=== PATIENT | female | born 1965 | race Caucasian/White ===

== ENCOUNTER 2020-09-14 02:49 | Inpatient (IN) | payer MEDICARE, OTHER ==
[~2020-09-14] VITALS: Ht 170.2 cm; Wt 81.6 kg
--- NOTE | 2020-09-14 03:39 | NUR ---
rachel from [facility] for medical clearance; pt placed on 5150 for dts. pt states plans to "overdose on heroine", received 800mg seroquel at facility
--- NOTE | 2020-09-14 03:41 | NUR ---
covid swab collected and sent to lab
[2020-09-14 03:52] LABS: BILIRUBIN,URINE Negative (NEGATIVE); COLOR,URINE LIGHT YELLOW (YELLOW); LEUKOCYTE ESTERASE ,URINE Trace (NEGATIVE); NITRITE, URINE Positive (NEGATIVE); PH,URINE 5.5 (5.0-8.0); PROTEIN,URINE Trace mg/dl (NEGATIVE); UGLUCOSE Negative (NEGATIVE); UROBILINOGEN,URINE 0.2 EU/dL (0.2)
[2020-09-14 04:06] LABS: BACTERIA,URINE 3+ /HPF (None Seen); SQUAMOUS EPITHELIAL CELL,UR Many /HPF (None Seen); WBC,URINE 51-80 /HPF (0-3)
[2020-09-14 04:09] LABS: BASOPHILS % (AUTO) 0.1 % (0.0-2.0); HEMATOCRIT 36 % (33-45); HEMOGLOBIN 12.1 g/dL (11.5-14.8); LYMPHOCYTES # (AUTO) 1.2 /CMM (0.8-4.8); LYMPHOCYTES % (AUTO) 23.9 % (20.0-44.0); MEAN CORPUSCULAR HGB CONC 34 g/dl (31.0-36.0); MEAN CORPUSCULAR VOLUME 89 fL (82-100); MONOCYTES # (AUTO) 0.7 /CMM (0.1-1.30); NEUTROPHILS # (AUTO) 3.2 /CMM (1.8-8.9); PLATELET COUNT (AUTO) 255 /CMM (150-450); RED BLOOD CELL COUNT(AUTO) 4.01 MIL/uL (4.0-5.2); WHITE BLOOD COUNT (AUTO) 5.2 K/uL (4.3-11.0)
[2020-09-14 04:22] LABS: ALANINE AMINOTRANSFERASE 18 U/L (12-78); ALBUMIN 3.6 g/dL (3.4-5.0); ALCOHOL, BLOOD < 3 mg/dL (0-0); ALKALINE PHOSPHATASE 116 U/L (46-116); ASPARTATE AMINOTRANSFERASE 14 U/L (15-37); BILIRUBIN,DIRECT 0.1 mg/dL (0.0-0.2); BILIRUBIN,TOTAL 0.4 mg/dL (0.2-1.0); CALCIUM, SERUM 9.7 mg/dL (8.5-10.1); CARBON DIOXIDE 32 mmol/L (21-32); CHLORIDE 105 mmol/L (98-107); CREATININE 1.2 mg/dL (0.6-1.3); GLUCOSE 111 mg/dL (74-106); POTASSIUM 3.6 mmol/L (3.5-5.1); SODIUM SERUM 142 mmol/L (136-145); TOTAL PROTEIN, SERUM 7.2 g/dL (6.4-8.2); UREA NITROGEN, BLOOD 19 mg/dL (7-18)
[2020-09-14 04:26] LABS: ACETAMINOPHEN 0 ug/ml (10-30)
[2020-09-14] MEDS ORDERED: NITROFURANTOIN/NITROFURAN MAC 100 MG CAPSULE PO ONE (04:30)
[2020-09-14] MEDS ORDERED: NITROFURANTOIN/NITROFURAN MAC 100 MG CAPSULE ONE (04:33)
--- NOTE | 2020-09-14 04:41 | NUR ---
pt refusing medication, states she doesnt need it
--- NOTE | 2020-09-14 05:44 | NUR ---
CALLED IN REPORT TO NURSE ALFRED
[2020-09-14 06:23] VITALS: BP 96/54
[2020-09-14] MEDS ORDERED: MAGNESIUM HYDROXIDE 30 ML UDC PO PRN (06:30)
[2020-09-14] MEDS ORDERED: BLOOD SUGAR DIAGNOSTIC 1 EACH STRIP IN ONE (06:30)
[2020-09-14] MEDS ORDERED: TEMAZEPAM 7.5 MG CAPSULE PO PRN (06:30)
[2020-09-14] MEDS ORDERED: ACETAMINOPHEN 325 MG TABLET PO PRN (06:30)
[2020-09-14] MEDS ORDERED: LORAZEPAM 0.5 MG TABLET PO PRN (06:30)
[2020-09-14] MEDS ORDERED: MAG HYDROX/AL HYDROX/SIMETH 30 ML UDC PO PRN (06:30)
[2020-09-14 08:00] VITALS: BP 90/54
[2020-09-14] MEDS ORDERED: FAMO20TA8 PO (08:27)
[2020-09-14] MEDS ORDERED: QUET400T PO (08:27)
[2020-09-14] MEDS ORDERED: BUPR300T52 PO (08:27)
--- NOTE | 2020-09-14 08:46 | NUR ---
RNOsmelCO: Admitted a 55 year old female from [facility]. Per hold officers responded from a call of the subject. The patient stated that she was tired of life and wanted to kill herself by overdosing on heroine. She has diagnosed with bipolar disorder, PTSD, and Borderline personality. During face to face interview, patient is uncooperative and refused to answer, she turned her back and cover herself with a blanket and sleep. She refused flu and PNA vaccine, as well as skin assessment. She is unkempt and disheveled with dysphoric affect. Dr Turcios is aware of the admission and Dr Kumar. All belongings were screened from [employer]. We will continue to monitor and start with plan of care. Patient's rights booklet was given to her.
--- NOTE | 2020-09-14 11:35 | NUR ---
RN-CO: DR Tong Kaur made aware of the admission and to reconcile home medications. Patient has a pressured speech, belligerent, intense eye contact.
[2020-09-14 16:00] VITALS: BP 92/59
[2020-09-14] MEDS: FAMOTIDINE (20 MG) 20 MG TABLET PO SCH (17:50)
[2020-09-14 20:00] VITALS: BP 98/57
--- NOTE | 2020-09-14 20:50 | NUR ---
NURSES NOTES: PAGED DR. ANTOINE TO INFORM HIM OF THIS ADMISSION. AWAITING FOR CALL BACK.
[2020-09-14] MEDS: CEPHALEXIN MONOHYDRATE 500 MG CAPSULE PO SCH (21:00)
--- NOTE | 2020-09-14 21:50 | NUR ---
NURSES NOTES: PAGED AGAIN DR. ANTOINE. AWAITING FOR CALLBACK.
--- NOTE | 2020-09-15 01:17 | NUR ---
NURSES NOTES: PATIENT REQUESTED FOR MOTRIN 600 MG FOR GENERALIZED BODY PAIN, OBTAINED AN ORDER FROM DR. DAVISON- MOTRIN 600 MG PRN Q6H. HOWEVER, WHEN OBSTETRICS GYNECOLOGY PHYSICIAN WENT INTO PATIENT'S ROOM, PATIENT IS ASLEEP. WILL CONTINUE TO MONITOR PATIENT'S PAIN STATUS.
[2020-09-15] MEDS: IBUPROFEN 600 MG TABLET PO PRN ×2 (03:28→17:54)
--- NOTE | 2020-09-15 03:29 | NUR ---
nurses notes: complained of headache 03/13. motrin 600 mg given orally.
[2020-09-15] MEDS: FAMOTIDINE (20 MG) 20 MG TABLET PO SCH (06:24)
[2020-09-15 08:00] VITALS: BP 128/73
--- NOTE | 2020-09-15 08:00 | NUR ---
RN NOTE- MULTICRAFT OPERATOR NOTIFIED THIS RN THAT DR ANTOINE CALLED IN REGARDING SEEING THIS PT. DR ANTOINE HAS TO SEE THIS PT THEY HAVE BEEN HERE ALMOST 24 HRS. STATED HE WILL SEE PT.
[2020-09-15 08:42] LABS: POTASSIUM 4.6 mmol/L (3.5-5.1)
[2020-09-15 08:43] LABS: ALBUMIN 3.4 g/dL (3.4-5.0); BILIRUBIN,TOTAL 0.3 mg/dL (0.2-1.0); TOTAL PROTEIN, SERUM 6.8 g/dL (6.4-8.2)
[2020-09-15] MEDS: CEPHALEXIN MONOHYDRATE 500 MG CAPSULE PO SCH ×2 (09:03→20:11)
[2020-09-15 10:38] VITALS: BP 128/73
--- NOTE | 2020-09-15 14:45 | NUR ---
Initial Discharge Plan: Pt is currently homeless and states that she would like to return to [place] when she has a chance. SW will work with the pt and the MD regarding appropriate discharge planning. SW will form a safe and proper discharge.
[2020-09-15 16:06] VITALS: BP 152/68
--- NOTE | 2020-09-15 18:00 | NUR ---
RN NOTE- DR ANTOINE PAGED TO SEE THIS PT. STATED HE WILL SEE PT
[2020-09-15 19:50] VITALS: BP 113/48
--- NOTE | 2020-09-15 20:24 | NUR ---
RN NOTES: PT. SEEN BY , GUERO PEREZ NOTED AND CARRIED OUT, WILL CONTINUTY WITH CARE.
[2020-09-15 21:00] VITALS: BP 118/80
[2020-09-15] MEDS: QUETIAPINE FUMARATE 100 MG TABLET PO SCH (21:04)
[2020-09-16] MEDS: IBUPROFEN 600 MG TABLET PO PRN (03:30)
[2020-09-16] MEDS: FAMOTIDINE (20 MG) 20 MG TABLET PO SCH (06:09)
--- NOTE | 2020-09-16 06:40 | NUR ---
RN NOTES: PATIENT RESTING IN ROOM. NO S/S OF DISTRESS. NO BEHAVIOR PROBLEMS NOTED AND NO CHANGE OF CONDITION NOTED, SAFETY PRECAUTION MAINTAINED, ALL PATIENT CARE NEEDS MET AT THIS TIME. WILL CONTINUE TO MONITOR PATIENT FOR MOOD, BEHAVIOR AND SAFETY AND ENDORSE TO AM SHIFT FOR CONTINUITY CARE.
[2020-09-16 08:00] VITALS: BP 92/57
--- NOTE | 2020-09-16 08:30 | NUR ---
PT. COOPERATIVE,MED COMPLIANT,PLEASANT.VS STABLE.
[2020-09-16] MEDS: CEPHALEXIN MONOHYDRATE 500 MG CAPSULE PO SCH ×2 (09:55→21:00)
[2020-09-16] MEDS: BUPROPION XL 150 MG TAB.ER.24 PO SCH (09:55)
[2020-09-16 16:00] VITALS: BP 100/67
--- NOTE | 2020-09-16 18:51 | NUR ---
out of rm. most of day in tv rm. and interacting with other pt's.
[2020-09-16 20:53] VITALS: BP 117/78
--- NOTE | 2020-09-16 21:56 | NUR ---
GPS RN NOTES: DR FAJARDO CALLED TO REPORT PATIENT IS INSISTING HER 2200 SEROQUEL DOSE/400MG MUST BE INCREASED TO 800MG, BUT DR FAJARDO STATED SHE WILL NOT INCREASE THE DOSE. PATIENT REFUSED 2100 KEFLEX 500MG 1 CAP AND HAS STATED SHE IS ALSO REFUSING 2200 SEROQUEL 100MG/4 TABS/400MG PRESCRIBED UNLESS SEROQUEL DOSE IS INCREASED TO 800MG. PATIENT IS AGITATED, UNCOOPERATIVE, VERBALLY AGGRESSIVE, THREATENING TO COMMIT SUICIDE IF SHE DOES NOT GET HER SEROQUEL INCREASED TO 800MG THEN DENYING SHE DOES NOT MEAN WHAT SHE HAD JUST SAID ABOUT COMMITTING SUICIDE. SAFETY PRECAUTION TAKEN, WILL CONTINUE TO MONITOR FOR MOOD, SAFETY AND BEHAVIOR.
[2020-09-16] MEDS: QUETIAPINE FUMARATE 100 MG TABLET PO SCH (22:00)
[2020-09-17] MEDS: FAMOTIDINE (20 MG) 20 MG TABLET PO SCH ×2 (06:00→08:36)
--- NOTE | 2020-09-17 06:43 | NUR ---
GPS RN CLOSING NOTES: PATIENT AWAKE, A/O X3. PATIENT SLEPT 5 HR THIS SHIFT. REFUSED 0600 MEDICATION PEPCID 20MG/1TAB PO ORDERED. UNCOOPERATIVE AND HOSTILE. NO S/S OF DISTRESS. RESPIRATION EVEN AND UNLABORED WITH EQUAL RISE AND FALL OF THE CHEST ON ROOM AIR. SAFETY PRECAUTION MAINTAINED, BED IN LOWEST POSITION AND LOCKED. Q15 MINUTES SAFETY ROUND CONTINUED. ALL PATIENT CARE NEEDS MET ANTICIPATED. WILL CONTINUE TO MONITOR PATIENT FOR MOOD, BEHAVIOR AND SAFETY AND ENDORSE TO AM SHIFT.
[2020-09-17 08:00] VITALS: BP 133/72
[2020-09-17] MEDS: BUPROPION XL 150 MG TAB.ER.24 PO SCH (08:35)
[2020-09-17] MEDS: CEPHALEXIN MONOHYDRATE 500 MG CAPSULE PO SCH ×2 (08:35→20:06)
[2020-09-17] MEDS ORDERED: QUETIAPINE FUMARATE 25 MG TABLET PO PRN (12:30)
[2020-09-17 16:00] VITALS: BP 113/75
[2020-09-17 20:00] VITALS: BP 129/89
--- NOTE | 2020-09-17 20:00 | NUR ---
GPS RN OPENING NOTE: PATIENT AWAKE, A/O X3. HOSTILE. REVIEWED MEDICATION PT UPSET OF CHANGES MADE TO HER MEDICATION. NO S/S OF RESP OR PHYSICAL DISTRESS. RESPIRATION EVEN AND UNLABORED WITH EQUAL RISE AND FALL OF THE CHEST ON ROOM AIR. SAFETY PRECAUTION IN PLACE BED IN LOWEST POSITION AND LOCKED. Q15 MINUTES SAFETY ROUND CONTINUED. WILL CONT TO MONITOR.
[2020-09-17] MEDS: QUETIAPINE FUMARATE 100 MG TABLET PO SCH ×2 (20:07→21:08)
--- NOTE | 2020-09-17 20:08 | NUR ---
PT REFUSED EVENING MEDICINE. STATES WITH RAISED VOICE "IM NOT GOING TO TAKE MY SEROQUEL BECAUSE THAT FUCKING IDIOT DOCTOR IS NOT GIVING ME THE CORRECT DOSE. I CANT BELIEVE HOW INCOMPETENT HE IS. IM NOT GOING TO TAKE KEFLEX I DO NOT HAVE A URINARY TRACT INFECTION. IM GOING TO CALL PATIENT RIGHTS TOMORROW AM BECAUSE I NEED TO GET TO A REAL HOSPITAL. "
--- NOTE | 2020-09-17 21:08 | NUR ---
PATIENT APPROACHED NURSE AND AGREES TO TAKE SEROQUEL STILL STATES ,"IM GONNA BE LEAVING AMA IN THE MORNING THOUGH." PT WATCHING TV DEMEANOR IS CALM.
[2020-09-18 08:00] VITALS: BP 103/60
[2020-09-18] MEDS: CEPHALEXIN MONOHYDRATE 500 MG CAPSULE PO SCH ×2 (09:00→21:00)
[2020-09-18] MEDS: IBUPROFEN 600 MG TABLET PO PRN (14:49)
--- NOTE | 2020-09-18 15:10 | NUR ---
RN NOTES PATIENT REQUESTED FOR IBUPROFEN SECONDARY TO COMPLAINT OF LEG PAIN.
[2020-09-18 16:00] VITALS: BP 118/70
--- NOTE | 2020-09-18 19:18 | NUR ---
RN NOTES PATIENT SEEN OUT OF BED WATCHING TV IN THE DINING ROOM AND WENT BACK TO ROOM, AWAKE AND VERBALLY RESPONSIVE. BREATHING EVEN AND UNLABORED, TOLERATING ROOM AIR, NOT IN ACUTE DISTRESS. A/O X4, ABLE TO MAKE NEEDS KNOWN. DENIES SI/HI AT THIS TIME. SAFETY PRECS MAINTAINED. ENDORSED TO SOFTWARE APPLICATIONS DESIGNER RN FOR ABIMAEL.
--- NOTE | 2020-09-18 19:20 | NUR ---
RN NOTES, PT IN ROOM AT THIS TIME, ENGAGED IN A CONVERSATION WITH ANOTHER PATIENT, NO EPISODES OF AGITATION OR DISRUPTIVE BEHAVIOR, WILL CONTINUE TO MONITOR CLOSELY."
[2020-09-18 20:00] VITALS: BP 97/68
--- NOTE | 2020-09-18 21:00 | NUR ---
RN NOTES, PATIENT REFUSED KEFLEX ANTIBIOTIC, EXPLAINED RISK AND BENEFITS X3, STILL REFUSED, WILL CONTINUE TO MONITOR CLOSELY.
[2020-09-18] MEDS: QUETIAPINE FUMARATE 100 MG TABLET PO SCH (21:01)
[2020-09-19] MEDS: FAMOTIDINE (20 MG) 20 MG TABLET PO SCH ×2 (06:00→06:22)
--- NOTE | 2020-09-19 06:33 | NUR ---
RN NOTES, PATIENT REFUSED PEPCID MEDICATION, EXPLAINED RISK AND BENEFITS X3, STILL REFUSE.
--- NOTE | 2020-09-19 06:41 | NUR ---
RN NOTES, PT IN ROOM AT THIS TIME, REFUSED BLOOD DRAWN AT THIS TIME, REFUSED KEFLEX AND THIS MORNING PEPCID, NOTED WITH EPISODES OF CURSING AND YELLING STAFF, VERY SENSITIVE, OTHERWISE NO SIGNIFICANT CHANGE IN CONDITION, WILL ENDORSE XONTINUITY OF CARE TO ONCOMING NURSE.
[2020-09-19 08:00] VITALS: BP 91/56
[2020-09-19] MEDS: CEPHALEXIN MONOHYDRATE 500 MG CAPSULE PO SCH ×2 (09:00→21:00)
[2020-09-19] MEDS ORDERED: buPROPion 100 MG TABLET PO SCH (11:00)
[2020-09-19] MEDS: BUPROPION XL 150 MG TAB.ER.24 PO SCH (11:10)
[2020-09-19] MEDS: IBUPROFEN 600 MG TABLET PO PRN (11:12)
[2020-09-19 16:00] VITALS: BP 102/69
[2020-09-19 16:39] LABS: CALCIUM, SERUM 9.3 mg/dL (8.5-10.1); POTASSIUM 4.1 mmol/L (3.5-5.1)
[2020-09-19 20:26] VITALS: BP 104/68
[2020-09-19] MEDS: QUETIAPINE FUMARATE 100 MG TABLET PO SCH (21:06)
[2020-09-20] MEDS: FAMOTIDINE (20 MG) 20 MG TABLET PO SCH (06:00)
[2020-09-20 08:00] VITALS: BP 115/72
[2020-09-20] MEDS: CEPHALEXIN MONOHYDRATE 500 MG CAPSULE PO SCH ×2 (08:13→21:00)
[2020-09-20] MEDS: BUPROPION XL 150 MG TAB.ER.24 PO SCH (08:15)
[2020-09-20] MEDS: IBUPROFEN 600 MG TABLET PO PRN ×2 (09:56→21:37)
--- NOTE | 2020-09-20 09:58 | NUR ---
RN-CO: PATIENT REQUESTED FOR MOTRIN FOR HEADCHE 12/11.
--- NOTE | 2020-09-20 11:00 | NUR ---
SNF Referral: SW faxed a referral to the following two facilities: [facility] with attn to Sully with the fax number: [phone] [facility] with attn to Perla to the fax number: [phone]
--- NOTE | 2020-09-20 13:18 | NUR ---
SNF Contact: Helen ([phone]) from [facility] contacted the SW and stated that the pt was accepted to their facility. Perla ([phone]) from [facility] contacted the SW and stated that the pt was accepted to their facility as well.
[2020-09-20 16:00] VITALS: BP 129/75
--- NOTE | 2020-09-20 19:30 | NUR ---
GPS RN NOTE, RECEIVED PATIENT AWAKE AND IN BED, NO S/S OR COMPLAINTS OF PAIN AT THIS TIME. PATIENT IS DISPLAYING NO S/S OF APPARENT DISTRESS AT THIS TIME. PATIENT BREATHING IS UNLABORED WITH EQUAL RISE AND FALL OF THE CHEST. PATIENT IS ALERT AND ORIENTED X 3 ON ROOM AIR WITH A SPO2 99%. PATIENT IS COMPLIANT WITH MEDICATIONS, ANXIOUS AT TIMES, NEEDY, PARANOID, AND COOPERATIVE. PATIENT DENIES SUICIDAL AND HOMICIDAL IDEATIONS AT THIS TIME. PATIENT ASSISTED WITH TURNING AND REPOSITIONING Q2HR AND PRN FOR COMFORT AND CIRCULATION. PATIENT HAS NO NEEDS AT THIS TIME. PATIENT EDUCATED ON THE USE OF THE CALL FONG. PATIENT BED SIDE RAILS UP X 2 FOR SAFETY. PATIENT BED IS LOCKED, LOW, WITH BED ALARM ON. WILL CONTINUE TO MONITOR THIS PATIENT Q15 MINUTES WITH THE HELP OF STAFF TO MAINTAIN SAFETY.
[2020-09-20 20:00] VITALS: BP 116/76
[2020-09-20] MEDS: QUETIAPINE FUMARATE 100 MG TABLET PO SCH (21:10)
--- NOTE | 2020-09-20 21:12 | NUR ---
GPS RN NOTE, PATIENT REFUSED KEFLEX 500MG PO Q12HR SCHEDULED. OFFERED THREE TIMES AND STILL PATIENT REFUSED STATING, " NO I DON'T NEED THAT ". EDUCATED PATIENT ON THE RISKS AND BENEFITS OF TAKING AND REFUSING KEFLEX. WILL CONTINUE TO MONITOR THIS PATIENT.
--- NOTE | 2020-09-20 21:37 | NUR ---
GPS RN NOTE, PATIENT HAS A COMPLAINT OF A HEAD ACHE AT 5 OUT 10 ON THE PAIN SCALE AND IS REQUESTING MOTRIN AT THIS TIME. PATIENT VITAL SIGNS ARE STABLE. GAVE MOTRIN 600MG PO Q6HR PRN ORDERED. WILL REASSESS FOR PAIN AND I WILL CONTINUE TO MONITOR THIS PATIENT.
[2020-09-21] MEDS: IBUPROFEN 600 MG TABLET PO PRN ×2 (07:04→19:42)
[2020-09-21] MEDS: FAMOTIDINE (20 MG) 20 MG TABLET PO SCH (07:04)
[2020-09-21 08:00] VITALS: BP 90/59
[2020-09-21] MEDS: CEPHALEXIN MONOHYDRATE 500 MG CAPSULE PO SCH (08:08)
[2020-09-21] MEDS: BUPROPION XL 150 MG TAB.ER.24 PO SCH (08:08)
--- NOTE | 2020-09-21 14:30 | NUR ---
Family Contact: GRACIELA called the pts mother, Maribell ([phone]), and confirmed that she bought the pt a train ticket to go back to [place]. She stated that the reference number for the tikcet is [id number]. She confirmed that she bought it and stated that she hopes the pt does not miss the train as the ticket was expensive.
--- NOTE | 2020-09-21 14:45 | NUR ---
Individual Intervention: SW met with the pt at bedside and informed her that the SW confirmed with her mom that a ticket has been purchased for her to go back to [place]. SW reminded her that she was accepted to a facility and she stated that she wanted to go back towards her home. SW inquired about where the pt would stay as she currently does not have a relationship with her children. Pt states that she has $3100 and that she can afford to stay in [facility] for a few days until she can find an apartment.
[2020-09-21 16:00] VITALS: BP 117/65
--- NOTE | 2020-09-21 19:30 | NUR ---
GPS RN NOTE, RECEIVED PATIENT AWAKE AND IN BED, NO S/S OR COMPLAINTS OF PAIN AT THIS TIME. PATIENT IS DISPLAYING NO S/S OF APPARENT DISTRESS AT THIS TIME. PATIENT BREATHING IS UNLABORED WITH EQUAL RISE AND FALL OF THE CHEST. PATIENT IS ALERT AND ORIENTED X 3 ON ROOM AIR WITH A SPO2 97%. PATIENT IS SELECTIVE WITH MEDICATIONS, ANXIOUS AT TIMES, NEEDY, PARANOID, AND COOPERATIVE. PATIENT DENIES SUICIDAL AND HOMICIDAL IDEATIONS AT THIS TIME. PATIENT ASSISTED WITH TURNING AND REPOSITIONING Q2HR AND PRN FOR COMFORT AND CIRCULATION. PATIENT HAS NO NEEDS AT THIS TIME. PATIENT EDUCATED ON THE USE OF THE CALL FONG. PATIENT BED SIDE RAILS UP X 2 FOR SAFETY. PATIENT BED IS LOCKED, LOW, WITH BED ALARM ON. WILL CONTINUE TO MONITOR THIS PATIENT Q15 MINUTES WITH THE HELP OF STAFF TO MAINTAIN SAFETY.
[2020-09-21 20:42] VITALS: BP 115/70
[2020-09-21] MEDS: QUETIAPINE FUMARATE 100 MG TABLET PO SCH (21:08)
[2020-09-22] MEDS: FAMOTIDINE (20 MG) 20 MG TABLET PO SCH (05:33)
--- NOTE | 2020-09-22 07:33 | NUR ---
GPS RN NOTES PATIENT COMPLAINING OF HEADACHE 4 OUT OF 10 AND REQUESTING MOTRIN. PRN MOTRIN ADMINISTERED.
[2020-09-22] MEDS: IBUPROFEN 600 MG TABLET PO PRN ×2 (07:36→16:26)
[2020-09-22 08:00] VITALS: BP 94/59
[2020-09-22] MEDS: BUPROPION XL 150 MG TAB.ER.24 PO SCH (08:05)
--- NOTE | 2020-09-22 11:18 | NUR ---
Discharge Note: Pt will be discharged to the [facility] located at [address] [place] [address]. Pt will be discharged at 4:30PM as the pt has a train ticket for 7pm. Pts mother, Maribell ([phone]), was made aware of the discharge and bought the pts ticket. Pt was accepted to [facility] but is refusing place despite psychiatrist recommendation. Pt states that she wants to go back to [place] and she has $3100 so she can afford a hotel until she finds an apartment to live in. Upon discharge, the pt appears to be in a euthymic mood and presents with a calm affect. Pt appears to be alert and oriented x4 (time, place, self and situation). Pt denies both suicidal and homicidal ideation as well as auditory and visual hallucinations. Pt appears to be well groomed and appropriately dressed. Pt appears to be ambulatory with a steady gait. Pt was provided with homeless resources such as shelters, food jones, showers, hot meals, health clinics, mental health clinics and substance abuse referrals. GRACIELA provided patient with the 2019 [facility] Group Home Program list. GRACIELA provided patient with a copy of the [facility] homeless directory which provides information on locations for hot meals, sack lunches, food pantries, and showers. GRACIELA provided an additional list of mental health clinics: [facility] [address] [place] [address] ([phone]); [facility] [address] [place] [address] ([phone]); a list of medical clinics; [facility] [address], [place]. [place], ; [facility] [address], [place]. GRACIELA Provided [facility] [address] [place] [address]: ([phone]). Patient was provided with a brief substance abuse intervention and referred to the following substance abuse programs: [facility] Substance Abuse Self-helpline ([phone]); [facility] [address] [place] [address] ([phone]); [facility] [address] [facility] [address] ([phone]); [facility] ([phone]); [facility] ([phone]); [facility] ([phone]); [facility] ([phone]).Pt will be under the care of her psychiatrist, Dr. Haddad, located at [address] [place] [address]; . Pt will also be under the care of her drawing checker, Dr. Cleveland, located at [facility] [place] [address]; . Pt signed the homeless waiver and the multidisciplinary exit care form was done, printed, signed, and given to the patient.
--- NOTE | 2020-09-22 15:13 | NUR ---
GPS RN NOTES PATIENT REFUSES SKIN ASSESSMENT. PER PATIENT HER SKIN IS INTACT.
[2020-09-22 16:00] VITALS: BP 110/75
--- NOTE | 2020-09-22 16:30 | NUR ---
GPS RN NOTES PATIENT COMPLAINING OF HEADACHE 4 OUT OF 10 AND REQUESTING MOTRIN. PRN MOTRIN ADMINISTERED.
--- NOTE | 2020-09-22 16:48 | NUR ---
GPS DISCHARGE NOTES PATIENT DISCHARGED IN MEDICALLY STABLE CONDITION. PATIENT IS A/O X4 AND ABLE TO TAKE CARE OF SELF. PATIENT DENIES ANY SUICIDAL AND HOMICIDAL IDEATIONS, ALSO DENIES VISUAL AND AUDITORY HALLUCINATIONS. ALL DISCHARGE DOCUMENTATIONS READY AND TEACHING PROVIDED OT PATIENT REGARDING DISCHARGE INSTRUCTIONS AND MEDICATION SCHEDULE. PATIENT VERBALIZED UNDERSTANDING AND SIGNED DISCHARGE PAPERS. ALL BELONGINGS AND VALUABLES ACCOUNTED FOR; PERSONAL THINGS RETURNED AND FORMED SIGNED BY PATIENT. PER PATIENT HER SKIN IS INTACT AND SHE REFUSES SKIN CHECK. PATIENT LEFT THE UNIT ACCOMPANIED BY RN AND IT BUSINESS PROCESS ARCHITECT AT 1630. OUTSIDE TAXI WAS WAITING TO TAKE THE PATIENT TO THE [facility]. VOUCHER WAS SIGNED AND COPY RETURNED TO THE NURSING OFFICE.
== END 2020-09-22 16:30 | disposition home or self-care (01) | DRG 885 ==
LOC: ER 02:53 → GPS 05:27
PROVIDERS: ADMIT Psychiatry & Neurology Psychiatry; ATTEND Nurse Practitioner Acute Care
DX: F31.64 Bipolar disorder, current episode mixed, severe, with psychotic features (principal); N17.0 Acute kidney failure with tubular necrosis; R45.851 Suicidal ideations; N39.0 Urinary tract infection, site not specified; F23 Brief psychotic disorder; F29 Unspecified psychosis not due to a substance or known physiological condition; K27.9 Peptic ulcer, site unspecified, unspecified as acute or chronic, without hemorrhage or perforation; G47.00 Insomnia, unspecified; Z59.0 Homelessness; Z73.6 Limitation of activities due to disability; F60.9 Personality disorder, unspecified; E66.9 Obesity, unspecified; Z91.14 Patient's other noncompliance with medication regimen; Z68.28 Body mass index [BMI] 28.0-28.9, adult; Z71.3 Dietary counseling and surveillance
CPT/HCPCS: 36415; 80048-TC; 80053-TC; 80061-TC; 80076-TC; 81001; 85025-TC; 87081-TC; 87086-TC; C9803; G0480

== ENCOUNTER 2023-06-12 18:42 | Inpatient (IN) | payer MEDICARE, OTHER ==
[~2023-06-12] VITALS: Ht 162.6 cm; Wt 79.4 kg
[~2023-06-12 18:42] MED LIST: FAMO20TA8 PO
[2023-06-12] MEDS ORDERED: QUET400T PO (19:09)
[2023-06-12] MEDS ORDERED: BUPR300T52 PO (19:09)
[2023-06-12 19:49] LABS: BASOPHILS % (AUTO) 0.7 % (0.0-2.0); HEMATOCRIT 26 % (33-45); HEMOGLOBIN 7.9 g/dL (11.5-14.8); LYMPHOCYTES # (AUTO) 1.7 K/uL (0.8-4.8); LYMPHOCYTES % (AUTO) 23.1 % (20.0-44.0); MEAN CORPUSCULAR HEMOGLOBIN 20 PG (26.0-33.0); MEAN CORPUSCULAR HGB CONC 30 g/dl (31.0-36.0); MEAN CORPUSCULAR VOLUME 67 fL (82-100); MONOCYTES # (AUTO) 0.6 K/uL (0.1-1.30); MONOCYTES % (AUTO) 8.9 % (2.0-12.0); NEUTROPHILS # (AUTO) 4.8 K/uL (1.8-8.9); NEUTROPHILS % (AUTO) 67.3 % (43.0-81.0); PLATELET COUNT (AUTO) 361 K/uL (150-450); RED BLOOD CELL COUNT(AUTO) 3.88 MIL/uL (4.0-5.2); WHITE BLOOD COUNT (AUTO) 7.2 K/uL (4.3-11.0)
[2023-06-12 20:20] LABS: ALANINE AMINOTRANSFERASE 24 U/L (12-78); ALBUMIN 3.5 g/dL (3.4-5.0); ALKALINE PHOSPHATASE 98 U/L (46-116); ASPARTATE AMINOTRANSFERASE 16 U/L (15-37); BILIRUBIN,TOTAL 0.3 mg/dL (0.2-1.0); CALCIUM, SERUM 8.9 mg/dL (8.5-10.1); CARBON DIOXIDE 23 mmol/L (21-32); CHLORIDE 106 mmol/L (98-107); GLUCOSE 154 mg/dL (74-106); POTASSIUM 3.4 mmol/L (3.5-5.1); SODIUM SERUM 139 mmol/L (136-145); TOTAL PROTEIN, SERUM 6.8 g/dL (6.4-8.2); UREA NITROGEN, BLOOD 22 mg/dL (7-18)
[2023-06-12 20:21] LABS: ACETAMINOPHEN 0 ug/ml (10-30); ALCOHOL, BLOOD < 3 mg/dL (0-10); SALICYLATE 1.6 mg/dL (2.8-20.0)
[2023-06-12 21:37] LABS: APPEARANCE,URINE CLEAR (CLEAR); BILIRUBIN,URINE NEGATIVE (NEGATIVE); BLOOD, URINE TRACE-INTA Ery/uL (NEGATIVE); COLOR,URINE YELLOW (YELLOW); KETONES,URINE 1+ mg/dL (NEGATIVE); LEUKOCYTE ESTERASE ,URINE TRACE (NEGATIVE); NITRITE, URINE NEGATIVE (NEGATIVE); PROTEIN,URINE NEGATIVE (NEGATIVE); UGLUCOSE NEGATIVE (NEGATIVE); UROBILINOGEN,URINE 0.2 EU/dL (0.2)
[2023-06-12 21:41] LABS: ADD URINE CULTURE NO
[2023-06-12 21:42] LABS: BACTERIA,URINE None seen /HPF (None Seen); MUCUS,URINE Few /LPF (None Seen)
[2023-06-12 21:49] LABS: EOSINOPHILS % (MANUAL) 1 % (0-4); LYMPHOCYTES % (MANUAL) 21 % (16-48); MONOCYTES % (MANUAL) 7 % (0-11.0); NEUTROPHILS % (MANUAL) 71 (42-76); OVALOCYTES 1+; PLATELET ESTIMATE ADEQU; TARGET CELLS 1+; TEAR DROP CELLS RARE
[2023-06-12 21:50] LABS: ANISOCYTOSIS 1+; HYPOCHROMASIA 1+; ROULEAUX 1+
[2023-06-12 22:01] LABS: AMPHETAMINE, URINE NEGATIVE (NEGATIVE); BARBITURATE, URINE NEGATIVE (NEGATIVE); BENZODIAZEPINE, URINE NEGATIVE (NEGATIVE); COCCAINE, URINE NEGATIVE (NEGATIVE); OPIATE, URINE NEGATIVE (NEGATIVE); PHENCYCLIDINE SCREEN,URINE NEGATIVE (NEGATIVE)
[2023-06-12 22:19] LABS: CANNABINOID, URINE POSITIVE (NEGATIVE)
[2023-06-13] MEDS: ZOLPIDEM TARTRATE 5 MG TABLET PO PRN (00:53)
[2023-06-13] MEDS ORDERED: MAG HYDROX/AL HYDROX/SIMETH 30 ML UDC PO PRN (01:00)
[2023-06-13] MEDS ORDERED: LORAZEPAM 1 MG TABLET PO PRN (01:00)
[2023-06-13] MEDS ORDERED: MAGNESIUM HYDROXIDE 30 ML UDC PO PRN (01:00)
[2023-06-13] MEDS ORDERED: ACETAMINOPHEN 325 MG TABLET PO PRN (01:00)
[2023-06-13] MEDS ORDERED: BLOOD SUGAR DIAGNOSTIC 1 EACH STRIP IN ONE (01:30)
[2023-06-13 01:45] VITALS: BP 119/72; TEMP 98.2; O2SAT 98
[2023-06-13 08:00] VITALS: BP 127/80; TEMP 97.8; O2SAT 94
[2023-06-13] MEDS: BUPROPION XL 150 MG TAB.ER.24 PO SCH (13:26)
[2023-06-13] MEDS ORDERED: ASPIRIN/ACETAMINOPHEN/CAFFEINE 1 EACH TABLET PO PRN (15:30)
[2023-06-13 16:00] VITALS: BP 134/82; TEMP 98; O2SAT 98
[2023-06-13] MEDS: ASPIRIN PO PRN (17:21)
[2023-06-13] MEDS: CAFFEINE PO PRN (17:21)
[2023-06-13] MEDS: ACETAMINOPHEN PO PRN (17:21)
[2023-06-13 20:00] VITALS: BP 118/81; TEMP 98; O2SAT 100
[2023-06-13] MEDS: QUETIAPINE FUMARATE 100 MG TABLET PO SCH (21:11)
[2023-06-14 08:00] VITALS: BP 103/63; TEMP 97.9; O2SAT 98
[2023-06-14] MEDS: FAMOTIDINE (20 MG) 20 MG TABLET PO SCH (08:18)
[2023-06-14] MEDS: BUPROPION XL 150 MG TAB.ER.24 PO SCH (08:18)
[2023-06-14] MEDS ORDERED: BUPROPION XL 150 MG TAB.ER.24 PO SCH (09:00)
[2023-06-14] MEDS ORDERED: POTASSIUM CHLORIDE 20 MEQ TAB.PRT.SR PO ONE (09:00)
[2023-06-14] MEDS: ASPIRIN PO PRN ×2 (09:41→15:48)
[2023-06-14] MEDS: ACETAMINOPHEN PO PRN ×2 (09:41→15:48)
[2023-06-14] MEDS: CAFFEINE PO PRN ×2 (09:41→15:48)
[2023-06-14 15:13] LABS: BASOPHILS # (AUTO) 0.1 K/uL (0.0-0.2); BASOPHILS % (AUTO) 1.1 % (0.0-2.0); HEMATOCRIT 27 % (33-45); HEMOGLOBIN 8.2 g/dL (11.5-14.8); LYMPHOCYTES # (AUTO) 1.4 K/uL (0.8-4.8); LYMPHOCYTES % (AUTO) 24.9 % (20.0-44.0); MEAN CORPUSCULAR HEMOGLOBIN 21 PG (26.0-33.0); MEAN CORPUSCULAR HGB CONC 31 g/dl (31.0-36.0); MEAN CORPUSCULAR VOLUME 67 fL (82-100); MONOCYTES # (AUTO) 0.7 K/uL (0.1-1.30); MONOCYTES % (AUTO) 11.8 % (2.0-12.0); NEUTROPHILS # (AUTO) 3.6 K/uL (1.8-8.9); NEUTROPHILS % (AUTO) 62.2 % (43.0-81.0); PLATELET COUNT (AUTO) 357 K/uL (150-450); RED BLOOD CELL COUNT(AUTO) 3.99 MIL/uL (4.0-5.2); RED CELL DISTRIBUTION WIDTH 21.7 % (11.5-15.0); WHITE BLOOD COUNT (AUTO) 5.8 K/uL (4.3-11.0)
[2023-06-14 15:17] LABS: CALCIUM, SERUM 9.1 mg/dL (8.5-10.1); CREATININE 1.2 mg/dL (0.6-1.3); POTASSIUM 4.7 mmol/L (3.5-5.1)
[2023-06-14 16:00] VITALS: BP 102/61; TEMP 98; O2SAT 97
[2023-06-14 20:00] VITALS: BP 106/66; TEMP 97.6; O2SAT 97
[2023-06-14] MEDS ORDERED: QUETIAPINE FUMARATE 100 MG TABLET ONE (21:12)
[2023-06-14] MEDS: QUETIAPINE FUMARATE 100 MG TABLET PO SCH (21:16)
[2023-06-15 08:00] VITALS: BP 105/59; TEMP 97.8; O2SAT 100
[2023-06-15] MEDS: ACETAMINOPHEN PO PRN (08:11)
[2023-06-15] MEDS: CAFFEINE PO PRN (08:11)
[2023-06-15] MEDS: ASPIRIN PO PRN (08:11)
[2023-06-15] MEDS: FAMOTIDINE (20 MG) 20 MG TABLET PO SCH (08:12)
[2023-06-15] MEDS: BUPROPION XL 150 MG TAB.ER.24 PO SCH (08:12)
[2023-06-15 16:01] VITALS: BP 100/65; TEMP 97.9; O2SAT 99
[2023-06-15 20:29] VITALS: BP 109/63; TEMP 97.9; O2SAT 99
[2023-06-15] MEDS: QUETIAPINE FUMARATE 100 MG TABLET PO SCH (21:21)
[2023-06-16 08:00] VITALS: BP 128/79; TEMP 97.6; O2SAT 96
[2023-06-16] MEDS: FAMOTIDINE (20 MG) 20 MG TABLET PO SCH (08:18)
[2023-06-16] MEDS: BUPROPION XL 150 MG TAB.ER.24 PO SCH (08:18)
[2023-06-16] MEDS: ACETAMINOPHEN PO PRN ×2 (09:47→16:14)
[2023-06-16] MEDS: ASPIRIN PO PRN ×2 (09:47→16:14)
[2023-06-16] MEDS: CAFFEINE PO PRN ×2 (09:47→16:14)
[2023-06-16 16:00] VITALS: BP 104/63; TEMP 98.2; O2SAT 100
[2023-06-16 19:49] VITALS: BP 124/65; TEMP 98.4; O2SAT 100
[2023-06-16] MEDS: ZOLPIDEM TARTRATE 5 MG TABLET PO PRN (21:29)
[2023-06-16] MEDS: QUETIAPINE FUMARATE 100 MG TABLET PO SCH (21:29)
[2023-06-17] MEDS: CAFFEINE PO PRN ×2 (03:45→14:08)
[2023-06-17] MEDS: ACETAMINOPHEN PO PRN ×2 (03:45→14:08)
[2023-06-17] MEDS: ASPIRIN PO PRN ×2 (03:45→14:08)
[2023-06-17] MEDS: BUPROPION XL 150 MG TAB.ER.24 PO SCH (08:41)
[2023-06-17] MEDS: FAMOTIDINE (20 MG) 20 MG TABLET PO SCH (08:41)
[2023-06-17 16:00] VITALS: BP 113/68; TEMP 98.6; O2SAT 100
[2023-06-17 20:25] VITALS: BP 110/51; TEMP 98.2; O2SAT 100
[2023-06-17] MEDS: QUETIAPINE FUMARATE 100 MG TABLET PO SCH (21:14)
[2023-06-18 08:00] VITALS: BP 94/55; TEMP 98.1; O2SAT 100
[2023-06-18] MEDS: ASPIRIN PO PRN ×2 (08:29→17:31)
[2023-06-18] MEDS: CAFFEINE PO PRN ×2 (08:29→17:31)
[2023-06-18] MEDS: ACETAMINOPHEN PO PRN ×2 (08:29→17:31)
[2023-06-18] MEDS: FAMOTIDINE (20 MG) 20 MG TABLET PO SCH (09:17)
[2023-06-18] MEDS: BUPROPION XL 150 MG TAB.ER.24 PO SCH (09:17)
[2023-06-18 16:00] VITALS: BP 105/69; TEMP 98.7; O2SAT 100
[2023-06-18] MEDS: QUETIAPINE FUMARATE 100 MG TABLET PO SCH (21:03)
[2023-06-19] MEDS: BUPROPION XL 150 MG TAB.ER.24 PO SCH (08:31)
[2023-06-19] MEDS: FAMOTIDINE (20 MG) 20 MG TABLET PO SCH (08:31)
[2023-06-19] MEDS: ASPIRIN PO PRN ×2 (08:33→15:02)
[2023-06-19] MEDS: CAFFEINE PO PRN ×2 (08:33→15:02)
[2023-06-19] MEDS: ACETAMINOPHEN PO PRN ×2 (08:33→15:02)
[2023-06-19 16:00] VITALS: BP 113/65; TEMP 98.1; O2SAT 98
[2023-06-19 20:00] VITALS: BP 110/75; TEMP 98.3; O2SAT 100
[2023-06-19] MEDS: QUETIAPINE FUMARATE 100 MG TABLET PO SCH (21:01)
[2023-06-20] MEDS: ASPIRIN PO PRN ×3 (03:47→21:24)
[2023-06-20] MEDS: ACETAMINOPHEN PO PRN ×3 (03:47→21:24)
[2023-06-20] MEDS: CAFFEINE PO PRN ×3 (03:47→21:24)
[2023-06-20] MEDS: FAMOTIDINE (20 MG) 20 MG TABLET PO SCH (08:46)
[2023-06-20] MEDS: BUPROPION XL 150 MG TAB.ER.24 PO SCH (08:46)
[2023-06-20 16:00] VITALS: BP 102/69; TEMP 98.2; O2SAT 99
[2023-06-20 20:00] VITALS: BP 98/71; TEMP 98.3; O2SAT 100
[2023-06-20] MEDS: QUETIAPINE FUMARATE 100 MG TABLET PO SCH (21:24)
[2023-06-21] MEDS: FAMOTIDINE (20 MG) 20 MG TABLET PO SCH (08:33)
[2023-06-21] MEDS: BUPROPION XL 150 MG TAB.ER.24 PO SCH (08:34)
[2023-06-21] MEDS: ACETAMINOPHEN PO PRN ×2 (11:58→20:18)
[2023-06-21] MEDS: CAFFEINE PO PRN ×2 (11:58→20:18)
[2023-06-21] MEDS: ASPIRIN PO PRN ×2 (11:58→20:18)
[2023-06-21] MEDS ORDERED: MAGNESIUM CITRATE 296 ML BOTTLE PO ONE (12:30)
[2023-06-21] MEDS ORDERED: PEG 3350/NA SULF,BICARB,CL/KCL 4,000 ML BOTTLE PO ONE (14:00)
[2023-06-21 16:00] VITALS: BP 116/73; TEMP 97.9; O2SAT 100
[2023-06-21 20:00] VITALS: BP 109/66; TEMP 97.9; O2SAT 100
[2023-06-21] MEDS: QUETIAPINE FUMARATE 100 MG TABLET PO SCH (21:09)
[2023-06-22] MEDS: BUPROPION XL 150 MG TAB.ER.24 PO SCH (08:14)
[2023-06-22] MEDS: FAMOTIDINE (20 MG) 20 MG TABLET PO SCH (08:15)
[2023-06-22] MEDS: ACETAMINOPHEN PO PRN ×2 (12:02→21:07)
[2023-06-22] MEDS: ASPIRIN PO PRN ×2 (12:02→21:07)
[2023-06-22] MEDS: CAFFEINE PO PRN ×2 (12:02→21:07)
[2023-06-22 16:00] VITALS: BP 113/65; TEMP 97.5; O2SAT 99
[2023-06-22 20:43] VITALS: BP 125/77; TEMP 98.1; O2SAT 99
[2023-06-22] MEDS: QUETIAPINE FUMARATE 100 MG TABLET PO SCH (21:07)
[2023-06-23] MEDS: FAMOTIDINE (20 MG) 20 MG TABLET PO SCH (08:05)
[2023-06-23] MEDS: BUPROPION XL 150 MG TAB.ER.24 PO SCH (08:05)
[2023-06-23] MEDS: CAFFEINE PO PRN ×2 (08:55→19:37)
[2023-06-23] MEDS: ACETAMINOPHEN PO PRN ×2 (08:55→19:37)
[2023-06-23] MEDS: ASPIRIN PO PRN ×2 (08:55→19:37)
[2023-06-23 16:00] VITALS: BP 103/64; TEMP 98.6; O2SAT 99
[2023-06-23 20:08] VITALS: BP 109/63; TEMP 97.9; O2SAT 100
[2023-06-23] MEDS: QUETIAPINE FUMARATE 100 MG TABLET PO SCH (21:12)
[2023-06-24] MEDS: BUPROPION XL 150 MG TAB.ER.24 PO SCH (08:32)
[2023-06-24] MEDS: FAMOTIDINE (20 MG) 20 MG TABLET PO SCH (08:33)
[2023-06-24] MEDS ORDERED: LACTULOSE 10 G/15 ML UDC (PYXIS) PO PRN (09:00)
[2023-06-24] MEDS: ASPIRIN PO PRN ×2 (10:38→17:42)
[2023-06-24] MEDS: ACETAMINOPHEN PO PRN ×2 (10:38→17:42)
[2023-06-24] MEDS: CAFFEINE PO PRN ×2 (10:38→17:42)
[2023-06-24 16:00] VITALS: BP 111/71; TEMP 98.1; O2SAT 100
[2023-06-24 20:22] VITALS: BP 107/40; TEMP 97.9; O2SAT 100
[2023-06-24] MEDS: QUETIAPINE FUMARATE 100 MG TABLET PO SCH (21:06)
[2023-06-25] MEDS: BUPROPION XL 150 MG TAB.ER.24 PO SCH (08:30)
[2023-06-25] MEDS: FAMOTIDINE (20 MG) 20 MG TABLET PO SCH (08:30)
== END 2023-06-25 12:25 | DRG 885 ==
LOC: ER 18:42 → GPS 23:40
PROVIDERS: ADMIT Psychiatry & Neurology Psychiatry; ATTEND Internal Medicine
DX: F31.30 Bipolar disorder, current episode depressed, mild or moderate severity, unspecified (principal); R45.851 Suicidal ideations; Z59.01 Sheltered homelessness; D68.59 Other primary thrombophilia; F60.3 Borderline personality disorder; K21.9 Gastro-esophageal reflux disease without esophagitis; F43.10 Post-traumatic stress disorder, unspecified; K59.00 Constipation, unspecified; E66.01 Morbid (severe) obesity due to excess calories; Z68.30 Body mass index [BMI] 30.0-30.9, adult; Z91.51 Personal history of suicidal behavior; Z87.11 Personal history of peptic ulcer disease; Z79.899 Other long term (current) drug therapy; R79.89 Other specified abnormal findings of blood chemistry
CPT/HCPCS: 36415; 80048-TC; 80061-TC; 80076-TC; 81001; 85025-TC; C9803; G0480